=== PATIENT | male | born 1955 | race Caucasian/White ===

== ENCOUNTER 2017-01-23 14:39 | Emergency (ER) | payer BC ==
[2017-01-23 15:20] LABS: #Basophils 0.1 thou/uL (0.0-0.2); #Eosinphils 0.1 thou/uL (0.0-0.7); #Lymphocytes 2.8 thou/uL (1.20-3.40); #Monocytes 1.2 thou/uL (0.11-0.59); #Neutrophils 10.4 thou/uL (1.40-6.50); %Basophils 0.8 % (0.0-1.0); %Eosinophils 0.4 % (0.0-10.0); %Monocytes 8.1 % (0.0-10.0); %Neutrophils 71.7 % (42.0-75.0); Hemoglobin 15.6 g/dL (14.0-18.0); Mean Corpuscular HGB CONC 33.2 g/dL (32.0-36.0); Mean Corpuscular Hemoglobin 29.7 pg (27.0-31.0); Mean Corpuscular Volume 89.5 fl (80.0-94.0); Mean Platelet Volume 8.4 fL (7.4-10.4); Platelet Count 303 thou/uL (130-400); RBC Distribution Width 12.1 % (11.5-14.5); Red Blood Cell (RBC) Count 5.26 mill/uL (4.70-6.10); White Blood Cell (WBC) Count 14.5 thou/uL (4.8-10.8)
[2017-01-23 15:36] LABS: ALT (SGPT) 69 U/L (8-55); AST (SGOT) 43 U/L (5-34); Albumin 4.1 g/dL (3.4-4.8); Alkaline Phosphatase 56 U/L (40-150); Anion Gap 15 mmol/L (10-20); BUN (Urea Nitrogen) 19 mg/dL (8.4-25.7); Bilirubin, Total 0.4 mg/dL (0.2-1.2); CK (CPK) 669 U/L (30-200); Calc. Creatinine Clearance 0 mL/min (70-130); Calcium 9.3 mg/dL (7.8-10.44); Carbon Dioxide 27 mmol/L (23-31); Chloride 101 mmol/L (98-107); Estimated GFR-MDRD Greater than 90; Globulin 3.4 g/dL (2.4-3.5); Glucose 153 mg/dL (80-115); Potassium 4.1 mmol/L (3.5-5.1); Protein, Total 7.5 g/dL (5.8-8.1); Sodium 139 mmol/L (136-145)
[2017-01-23 15:38] LABS: CKMB 1.9 ng/mL (0-6.6); Troponin I Less than 0.010 ng/mL (< 0.028)
[2017-01-23 15:48] LABS: Bacteria/HPF None Seen HPF (None Seen); Bilirubin Negative (Negative); Blood, Urine Trace (Negative); Clarity Clear (Clear); Glucose, Urine (Dipstick) Negative (Negative); Leukocyte Negative (Negative); Nitrite Negative (Negative); Protein, Urine (Dipstick) Negative (Neg-Trace); RBC/HPF 0-3 HPF (0-3); Specific Gravity, Urine 1.025 (1.005-1.030); Squamous Epithelial 0-3 HPF (0-3); Urobilinogen 0.2 mg/dL (0.2-1.0); WBC/HPF 0-3 HPF (0-3)
--- NOTE | 2017-01-23 16:21 | CT ---
HEAD CT NONCONTRAST: INDICATION: Altered mental status. FINDINGS: There is no evidence of ventriculomegaly, mass effect, midline shift, or acute intracranial hemorrha ge. Mild chronic microvascular ischemic disease of the cerebral white matter is present. Mild scat tered paranasal mucosal thickening/retention cyst formation is seen. IMPRESSION: 1. No acute intracranial hemorrhage or mass effect. 2. Mild chronic microvascular ischemic disease. POS: [facility]
--- NOTE | 2017-01-23 16:23 | RAD ---
RADIOGRAPH OF CHEST SINGLE VIEW INDICATION: Persistent cough for 1 month. FINDINGS: No lobar consolidation, effusion, or pneumothorax. Cardiac silhouette is accentuated by portable te chnique. Surgical anchor overlies the right humeral head. There is osseous degenerative change. IMPRESSION: No focal consolidation. POS: [facility]
== END 2017-01-23 16:28 | disposition home or self-care (01) ==
LOC: BURERS 14:39
DX: J20.9 Acute bronchitis, unspecified (principal); R55 Syncope and collapse; I10 Essential (primary) hypertension; F17.220 Nicotine dependence, chewing tobacco, uncomplicated; Z79.899 Other long term (current) drug therapy
CPT/HCPCS: 36416; 70450; 71010; 80053; 81003; 81015; 82550; 82553; 84484; 85025; 93005; 94760; 96360; 36415-59

== ENCOUNTER 2019-03-07 08:41 | Outpatient (CLI) | payer BC ==
--- NOTE | 2019-03-07 20:38 | RAD ---
RIGHT KNEE FOUR VIEWS: 03/07/19 No fracture or joint effusion was seen. The knee is similar to the opposite side showing medial joint space narrowing, osteophytes, and patellofemoral osteophytes. IMPRESSION: Moderate osteoarthritis. POS: [facility]
--- NOTE | 2019-03-07 20:39 | RAD ---
LEFT KNEE FOUR VIEWS: 03/07/19 No fracture or joint effusion was seen. Arthritic changes are present consisting of medial joint spac e narrowing and osteophytes. Patellofemoral osteophytes are quite prominent also. IMPRESSION: Osteoarthritis. POS: HOME
== END 2019-03-07 08:42 | disposition home or self-care (01) ==
LOC: BURRAD 08:41
DX: M25.569 Pain in unspecified knee (principal); M17.0 Bilateral primary osteoarthritis of knee